=== PATIENT | female | born 1995 | race Two or more races ===

== ENCOUNTER → 2020-11-02 16:31 | Outpatient (CLI) | payer OTHER | END | disposition home or self-care (01) | LOC: PPH VACUNA 16:31 | DX: Z23 Encounter for immunization (principal) ==

== ENCOUNTER 2022-10-25 07:14 | Outpatient (CLI) | payer OTHER | END 2022-10-25 07:22 | disposition home or self-care (01) | LOC: NUCLEAR 07:14 | PROVIDERS: ATTEND Surgery | DX: R10.13 Epigastric pain (principal) ==